=== PATIENT | male | born 2005 | race Caucasian/White ===

== ENCOUNTER 2024-07-17 16:20 | Emergency (ER) | payer MEDICAID ==
[~2024-07-17] VITALS: Ht 170.2 cm; Wt 75.0 kg
[2024-07-17 16:26] VITALS: TEMP 97.5
[2024-07-17 18:10] LABS: BASOPHILS % (AUTO) 0.6 % (0.0-2.0); EOSINOPHILS % (AUTO) 5.9 % (1.0-6.0); HEMOGLOBIN 15.7 g/dL (13.5-17.5); LYMPHOCYTES # (AUTO) 2.4 K/uL (1.0-4.8); LYMPHOCYTES % (AUTO) 25.1 % (22.0-44.0); MEAN CORPUSCULAR HEMOGLOBIN 28.3 pg (26.0-34.0); MEAN CORPUSCULAR HGB CONC 33.3 G/dL (31.0-37.0); MEAN CORPUSCULAR VOLUME 85 fL (80-100); MONOCYTES # (AUTO) 0.8 K/uL (0.1-1.0); MONOCYTES % (AUTO) 8.5 % (2.0-9.0); NEUTROPHILS # (AUTO) 5.8 K/uL (1.8-7.7); NEUTROPHILS % (AUTO) 59.9 % (40.0-70.0); PLATELET COUNT (AUTO) 247 K/uL (150-450); RED BLOOD CELL COUNT(AUTO) 5.53 MIL/uL (4.50-5.90); RED CELL DISTRIBUTION WIDTH 13.7 % (11.5-14.5); WHITE BLOOD COUNT (AUTO) 9.7 K/uL (4.5-11.0)
[2024-07-17 18:25] LABS: ANION GAP 6 mmol/L (8-16); CALCIUM, TOTAL 8.5 mg/dL (8.8-10.5); CARBON DIOXIDE 30 mmol/L (22-29); CHLORIDE 103 mmol/L (98-107); GLOMERULAR FILTR. RATE CALC > 60 mL/min (>60); GLUCOSE,RANDOM 95 mg/dL (70-110); SODIUM SERUM 139 mmol/L (136-145); UREA NITROGEN, BLOOD 13 mg/dL (7-18)
[2024-07-17 18:33] LABS: TROPONIN I-HIGH SENSITIVITY Less Than 4 ng/L (<76)
[2024-07-17 19:00] VITALS: BP 120/63; PULSE 70; RESP 16; O2SAT 100
== END 2024-07-17 19:11 | disposition home or self-care (01) ==
LOC: EMS 16:20
DX: R07.89 Other chest pain (principal)
CPT/HCPCS: 71045; 80048; 83735; 84484; 85025; 93005; 99285; 36415-L1; 36415-TC

== ENCOUNTER 2025-04-17 18:38 | Emergency (ER) | payer MEDICAID, OTHER ==
[~2025-04-17] VITALS: Ht 165.1 cm; Wt 70.0 kg
[2025-04-17 19:50] VITALS: BP 120/62; PULSE 71; RESP 18; TEMP 98.605328; O2SAT 97
[2025-04-17] MEDS: MAGNESIUM CITRATE [LEMON] 300 ML ORAL SOLUTION PO ONE (22:21)
[2025-04-17] MEDS: BISACODYL 10 MG RECTAL RECTAL SUPPOSITORY PR ONE (22:21)
[2025-04-17] MEDS ORDERED: POLY17PO47 PO (23:02)
== END 2025-04-17 23:18 | disposition home or self-care (01) ==
LOC: EMS 18:39
DX: K59.00 Constipation, unspecified (principal); K62.89 Other specified diseases of anus and rectum
CPT/HCPCS: 74018; 99283